=== PATIENT | male | born 1960 | race Caucasian/White ===

== ENCOUNTER 2018-08-04 02:51 | Observation (INO) ==
[2018-08-04] MEDS ORDERED: fentaNYL citrate 100 MCG/2 ML VIAL IV STA (03:10)
[2018-08-04] MEDS ORDERED: LABETALOL HCL IV 5 MG/ML 20ML IV STA (03:10)
--- NOTE | 2018-08-04 03:14 | Emergency Department Note ---
ED Provider Note Name: Tr Willingham Age: 57 M Arrives Via: POV Informant: Pt, CC: Abdominal pain HPI: 57 male arrives for evaluation of midline abdominal pain. Mild radiation to back. Tearing in nature. No radiation to flanks. No nausea, vomiting, syncope, cp, sob, fevers, chills, urinary/bowel changes, leg pains nor other symptoms. Nothing makes better nor worse. No medications taken for this. History of AAA with multiple areas repaired in 2015. He had recent CTA of abdomen revealing another aneurysm. He denies falls, trauma, injuries. ROS: See above HPI for pertinent positives & negatives. A total of 10 systems reviewed and were otherwise negative. Past Medical History: CAD, HTN, DLP, AAA Past Surgical History: CABG, AAA repair Family History: AAA, CAD Social History: Lives with , previous smoker Home Medications: Asa, Nexium, atorvastatin, gabapentin, advil, lisinopril, metoprolol, mtvi Allergies none Physical: Vitals: BP 126/74, P 74, R 18, T 36.5, O2 93 % Exam: GENERAL: Patient is very uncomfortable appearing and in moderate distress. EYES: No scleral icterus, unremarkable pupils. ENT: Mucous membranes moist, no nasal congestion. NECK: No masses appreciated, no meningismus, trachea is midline. RESPIRATORY: No dyspnea. Clear to auscultation and equal bilaterally. No wheeze, no rhonchi. CARDIOVASCULAR: Regular rate and rhythm. No murmurs, rubs, gallops appreciated. GASTROINTESTINAL: Vague TTP umbilical, mild TTP RLQ, otherwise abdomen soft, non-tender, no peritonitis. Bowel sounds positive. No masses appreciated. BACK: No midline tenderness, no CVA tenderness EXTREMITIES: Normal motion all extremities, no cyanosis, no edema. NEUROLOGIC: Alert and oriented, no acute motor or sensory deficits, no focal weakness, cranial nerves grossly intact. SKIN: No rash, no jaundice, no diaphoresis. ED Course: Prior Medical Record, Triage/Nursing Notes, Medications, Allergies reviewed by Me Vital Signs: reviewed and remarkable for HTN Labs: Reviewed and remarkable for normal cbc, bmp, lft, lipase Interventions: saline Lock, fentanyl 100mcg IV, Labetalol 10mg IV, NSS infusion Imaging: [facility] Radiologist interpretation reviewed by me: No evidence AAA issue however there is appendicitis findings Consults: Dr Cruz Gen Surg will take to OR Reassessments/Times: Multiple, BP much improved and pain resolving Blood pressure: Normal. No Referral necessary Disposition: Transferred to OR Differentials: AAA rupture/dissection, occlusion, ischemia, renal colic, uri, gb issue, appendicitis, diverticulitis, gastroeneritis amongst other pathologies. Medical Decision Makin yr old male with history of AAA repair and CABG who developed sudden onset rapidly worsening umbilical pain this evening. Quite hypertensive and unc omfortable on arrival. I will note he did have some RLQ TTP though no significant pain at that location otherwise on arrival. With history and findings sent emergently to CT for Angio abdomen/pelvis which revealed stable aorta but acute appendicitis. No fevers, wbc elevation and does not have sig nificant TTP at this time. Reviewed with gen surg who will bring patient to OR. Mefoxin given here without issue. Impression: Acute Appendicitis Hypertension Damion Dasilva MD Impression & Plan Appendicitis, acute, Hypertension Past Med/Surg History Medical History Appendicitis, acute (Acute) Appendicitis, acute Social History Preferred Language: Kazakh Feels Safe at Home: Yes Smoking Status: Former smoker Results & Data Vital Signs Vital Signs - 24 hr 08/04/18 02:56 08/04/18 03:39 08/04/18 04:30 Temperature 36.5 C Temperature Source Oral Sepsis Recent Fever Within 48 Hours No Sepsis New/Unexplained Change in Mental Status No Sepsis Action Taken by Nursing No Action Required Pulse Rate 79 Pulse Rate [Left Finger] 76 74 Pulse Rhythm Regular Pulse Strength Normal Respiratory Rate 20 18 18 Respiratory Effort / Characteristics Non-Labored Spontaneous Non-Labored Spontaneous Respiratory Depth Normal Normal Respiratory Pattern Regular Blood Pressure 198/114 H Blood Pressure [Right Arm] 129/78 126/74 Blood Pressure Mean 142 Blood Pressure Mean [Right Arm] 95 91 Blood Pressure Position Sitting Blood Pressure Position [Right Arm] Sitting Pulse Oximetry 97 95 93 Oxygen Delivery Method Room Air Room Air Room Air Laboratory Data Result diagrams: 08/04/18 03:12 08/04/18 03:12 Lab Results 08/04/18 08/04/18 Range/Units 03:12 03:12 WBC 10.68 (4.8-10.8) K/uL RBC 4.92 (4.7-6.1) M/uL Hgb 14.6 (14.0-18.0) g/dL Hct 43.3 (42-52) % MCV 88.0 (80-100) fL MCH 29.7 (25-34) pg MCHC 33.7 (32-36) g/dL RDW Std Deviation 39.9 (36.4-46.3) fL RDW Coeff of Naresh 12.4 (11.5-14.5) % Plt Count 165 (130-400) K/uL MPV 9.9 (7.4-10.4) fL Immature Gran % (Auto) 0.3 % Neut % (Auto) 68.5 % Lymph % (Auto) 17.3 % [place] % (Auto) 11.3 % Eos % (Auto) 2.4 % Baso % (Auto) 0.2 % Immature Gran # (Auto) 0.03 H (0.00-0.02) K/uL Neut # (Auto) 7.31 H (1.4-6.5) K/uL Lymph # (Auto) 1.85 (1.2-3.4) K/uL [place] # (Auto) 1.21 H (0.11-0.59) K/uL Eos # (Auto) 0.26 (0-0.5) K/uL Baso # (Auto) 0.02 (0-0.2) K/uL Sodium 138 (136-145) mmol/L Potassium 4.2 (3.5-5.1) mmol/L Chloride 104 (98-107) mmol/L Carbon Dioxide 26 (21-32) mmol/L Anion Gap 8.0 (3-11) BUN 18 (7-18) mg/dl Creatinine 1.35 (0.6-1.4) mg/dl Est Cr Clr Drug Dosing 67.3 ml/min Est GFR ( Amer) 66.1 Est GFR (Non-Af Amer) 57.1 BUN/Creatinine Ratio 13.3 (10-20) Glucose 110 H (70-99) mg/dl Calcium 9.2 (8.5-10.1) mg/dl Magnesium 1.9 (1.8-2.4) mg/dl Total Bilirubin 0.4 (0.2-1) mg/dl Direct Bilirubin < 0.1 (0-0.2) mg/dl AST 28 (15-37) U/L ALT 50 (12-78) U/L Alkaline Phosphatase 97 (45-117) U/L Total Protein 7.5 (6.4-8.2) gm/dl Albumin 3.7 (3.4-5.0) gm/dl Lipase 71 L (73-393) U/L Administered Medications Sodium Chloride (Nss 1000ml) 1,000 mls @ 100 mls/hr IV .Q10H SHARON Stop: 09/03/18 03:29 Last Admin: 08/04/18 04:03 Dose: 100 mls/hr Documented by: [id number] Ioversol (Optiray 320 125ml) 125 ml IV ONCE PRN PRN Reason: Interaction Checking Stop: 08/08/18 03:38 Last Admin: 08/04/18 03:40 Dose: 118 ml Documented by: [id number] Discontinued Medications Fentanyl Citrate (Fentanyl Citrate) 100 mcg IV NOW STA Stop: 08/04/18 03:11 Last Admin: 08/04/18 03:24 Dose: 100 mcg Documented by: [id number] Sodium Chloride (Nss 1000ml) 1,000 mls @ 100 mls/hr IV .Q10H SHARON Stop: 09/03/18 03:14 Last Admin: 08/04/18 05:21 Dose: Not Given Documented by: [id number] Cefoxitin Sodium (Mefoxin) 2,000 mg in 60 mls @ 100 mls/hr IV NOW STA Stop: 08/04/18 05:16 Last Admin: 08/04/18 05:21 Dose: 100 mls/hr Documented by: [id number] Labetalol HCl (Normodyne) 10 mg IV NOW STA Stop: 08/04/18 03:11 Last Admin: 08/04/18 03:24 Dose: 10 mg Documented by: [id number] Cosigned by: [id number] Discharge Plan Visit Data Chief Complaint: Abdominal Pain Stated Complaint: STOMACH PAIN ED Provider: Damion Dasilva Discharge Problem: Appendicitis, acute, Hypertension Forms Stand Alone Forms: Call Back Authorization, [facility] Prescriptions Prescriptions: No Action multivitamin Tablet 1 tab PO DAILY RF: 0 atorvastatin 40 mg Tablet 40 mg PO DAILY RF: 0 aspirin 325 mg Tablet 325 mg PO DAILY RF: 0 metoprolol succinate 200 mg Tablet Extended Release 24 Hr 200 mg PO DAILY RF: 0 acetaminophen [Tylenol Extra Strength] 500 mg Tablet 1,000 mg PO Q6H PRN (Reason: Pain) RF: 0 ibuprofen [Advil] 200 mg Tablet 400 mg PO Q6H PRN (Reason: Pain) RF: 0 gabapentin 300 mg Capsule 300 mg PO HS RF: 0 lisinopril 40 mg Tablet 40 mg PO DAILY RF: 0 esomeprazole magnesium [Nexium] 20 mg Capsule,Delayed Release(Dr/Ec) 20 mg PO DAILY RF: 0 Discharge Problem: Appendicitis, acute Qualifiers: Acute appendicitis type: with localized peritonitis Appendicitis gangrene presence: without gangrene Appendicitis perforation presence: without perforation Appendicitis abscess presence: without abscess Qualified Code(s): K35.30 - Acute appendicitis with localized peritonitis, without perforation or gangrene Hypertension Qualifiers: Hypertension type: essential hypertension Qualified Code(s): I10 - Essential (primary) hypertension
[2018-08-04] MEDS ORDERED: SODIUM CHLORIDE 0.9% 1000ML 1,000 ML IV SCH ×2 (03:15→03:30)
[2018-08-04 03:20] LABS: Basophils # (auto) 0.02 K/uL (0-0.2); Basophils % (auto) 0.2 %; Eosinophils # (auto) 0.26 K/uL (0-0.5); Eosinophils % (auto) 2.4 %; Hematocrit (blood only) 43.3 % (42-52); Hemoglobin 14.6 g/dL (14.0-18.0); Immature Granulocytes # (auto) 0.03 K/uL (0.00-0.02); Immature Granulocytes % (auto) 0.3 %; Lymphocytes # (auto) 1.85 K/uL (1.2-3.4); Lymphocytes % (auto) 17.3 %; Mean Corpuscular Hgb Conc 33.7 g/dL (32-36); Mean Platelet Volume 9.9 fL (7.4-10.4); Monocytes # (auto) 1.21 K/uL (0.11-0.59); Monocytes % (auto) 11.3 %; Neutrophils # (auto) 7.31 K/uL (1.4-6.5); Neutrophils % (auto) 68.5 %; Platelet Count 165 K/uL (130-400); RDW Coefficient of Variation 12.4 % (11.5-14.5); RDW Standard Deviation 39.9 fL (36.4-46.3); Red Blood Count 4.92 M/uL (4.7-6.1); White Blood Count 10.68 K/uL (4.8-10.8)
[2018-08-04 03:37] LABS: Alanine Aminotransferase 50 U/L (12-78); Albumin Level 3.7 gm/dl (3.4-5.0); Aspartate Aminotransferase 28 U/L (15-37); BUN Creatinine Ratio 13.3 (10-20); Bilirubin Direct < 0.1 mg/dl (0-0.2); Blood Urea Nitrogen 18 mg/dl (7-18); Calcium 9.2 mg/dl (8.5-10.1); Carbon Dioxide 26 mmol/L (21-32); Chloride 104 mmol/L (98-107); Creatinine Clr Calc Pharmacy 67.3 ml/min; Est GFR (African American) 66.1; Est GFR (Non-African American) 57.1; Glucose 110 mg/dl (70-99); Magnesium 1.9 mg/dl (1.8-2.4); Potassium 4.2 mmol/L (3.5-5.1); Sodium 138 mmol/L (136-145)
[2018-08-04] MEDS ORDERED: OPTIRAY 320 125ml IV PRN (03:39)
[2018-08-04 03:40] LABS: Alkaline Phosphatase 97 U/L (45-117); Bilirubin,Total 0.4 mg/dl (0.2-1); Total Protein 7.5 gm/dl (6.4-8.2)
[2018-08-04] MEDS ORDERED: cefOXitin 2,000 MG/60 ML BAG IV STA (04:41)
--- NOTE | 2018-08-04 05:40 | History & Physical Report ---
Date of Service August 04, 2018 Assessment & Plan (1) Appendicitis, acute: Our plan is to proceed with laparoscopic appendectomy possible open risk and complication were explained to the patient including bleeding infection high probability of converting to an open procedure due to the presence of a long midline incision and aortic surgery All questions were answered Present on Admission?: Yes History of Present Illness 57-year-old male admitted night developed some lower abdominal pain progressively became worse came to the emergency room her work-up revealed findings of acute appendicitis Denies any nausea or vomiting. Primary Care Provider: Maksim Vital MD Allergies Allergy/AdvReac Type Severity Reaction Status Date / Time No Known Allergies Allergy Unverified 08/04/18 02:56 Home Medications Home Medications Medication Instructions Recorded Confirmed Type acetaminophen [Tylenol Extra 1,000 mg PO Q6H PRN 08/04/18 08/04/18 History Strength] aspirin 325 mg PO DAILY 08/04/18 08/04/18 History atorvastatin 40 mg PO DAILY 08/04/18 08/04/18 History esomeprazole magnesium [Nexium] 20 mg PO DAILY 08/04/18 08/04/18 History gabapentin 300 mg PO HS 08/04/18 08/04/18 History ibuprofen [Advil] 400 mg PO Q6H PRN 08/04/18 08/04/18 History lisinopril 40 mg PO DAILY 08/04/18 08/04/18 History metoprolol succinate 200 mg PO DAILY 08/04/18 08/04/18 History multivitamin 1 tab PO DAILY 08/04/18 08/04/18 History Past Med/Surg History Medical History Appendicitis, acute Appendicitis, acute Social History Preferred Language: Lao Feels Safe at Home: Yes Smoking Status: Former smoker Immunizations: Patient past medical history significant for having had an open abdominal aortic aneurysm resection in [place] approximately 3 years ago and he follows regularly with them for peripheral vascular arterial insufficiency He has also had open heart surgery remote past The patient has a strong family history of atherosclerosis Review of Systems Review of Systems: Overall the patient is doing well with his present condition he does have a few issues that need to be addressed including claudicating symptoms in the right lower extremity not incapacitating Left hip presently being evaluated for therapy Denies any shortness of breath or chest pain any GI symptoms other than what stated Physical Exam Physical Exam: Patient is alert coherent in no distress significant other at bedside Head is normocephalic sclera nonicteric conjunctival injection Neck no stiffness no masses no carotid bruits patient did have a carotid Doppler years ago and I recommended possibly follow-up in the future Chest symmetrical in shape no wheezing sternotomy noted Abdomen slightly obese midline abdominal incision noted no hernias appreciated rebound tenderness in the right lower quadrant Extremities +1 right femoral pulse no pulses dorsalis pedis or posterior tibial on the right Left patient has a +2 femoral pulse and a +2 dorsalis pedis pulse +1 posterior tibial Results & Data Vital Signs (Past 12 Hours) Vital Signs Temp Pulse Pulse Resp BP BP Pulse Ox 08/04/18 04:30 74 18 126/74 93 08/04/18 03:39 76 18 129/78 95 08/04/18 02:56 36.5 C 79 20 198/114 H 97 Results noted CAT scan report was reviewed CAT scan was seen
--- NOTE | 2018-08-04 05:41 | History & Physical Report ---
Date of Service August 04, 2018 Assessment & Plan (1) Appendicitis, acute: Our plan is to proceed with laparoscopic appendectomy possible open risk and complication were explained to the patient including bleeding infection high probability of converting to an open procedure due to the presence of a long midline incision and aortic surgery All questions were answered History of Present Illness Primary Care Provider: Maksim Vital MD Allergies Allergy/AdvReac Type Severity Reaction Status Date / Time No Known Allergies Allergy Unverified 08/04/18 02:56 Home Medications Home Medications Medication Instructions Recorded Confirmed Type acetaminophen [Tylenol Extra 1,000 mg PO Q6H PRN 08/04/18 08/04/18 History Strength] aspirin 325 mg PO DAILY 08/04/18 08/04/18 History atorvastatin 40 mg PO DAILY 08/04/18 08/04/18 History esomeprazole magnesium [Nexium] 20 mg PO DAILY 08/04/18 08/04/18 History gabapentin 300 mg PO HS 08/04/18 08/04/18 History ibuprofen [Advil] 400 mg PO Q6H PRN 08/04/18 08/04/18 History lisinopril 40 mg PO DAILY 08/04/18 08/04/18 History metoprolol succinate 200 mg PO DAILY 08/04/18 08/04/18 History multivitamin 1 tab PO DAILY 08/04/18 08/04/18 History Past Med/Surg History Medical History Appendicitis, acute Appendicitis, acute Social History Preferred Language: Barbadian Feels Safe at Home: Yes Smoking Status: Former smoker Results & Data Vital Signs (Past 12 Hours) Vital Signs Temp Pulse Pulse Resp BP BP Pulse Ox 08/04/18 04:30 74 18 126/74 93 08/04/18 03:39 76 18 129/78 95 08/04/18 02:56 36.5 C 79 20 198/114 H 97
[2018-08-04] MEDS ORDERED: LIDOCAINE/EPINEPHRINE 1% 20 ML VIAL ONE (06:06)
--- NOTE | 2018-08-04 06:10 | Anesthesiology Consultation ---
Date of Service August 04, 2018 Assessment & Plan (1) Encounter for pre-operative examination: Chart Review Chart Review: Acceptable Risk for Surgery and Patient NOT seen in Pre Admission Testing History Surgery Operation Date: 08/04/18 06:15 Proposed Procedures p Laparoscopic Appendectomy - Richard Cruz MD Height/Weight Height: 5 ft 7 in Weight: 102.6 kg Allergies Allergy/AdvReac Type Severity Reaction Status Date / Time No Known Allergies Allergy Unverified 08/04/18 02:56 Medications Home Medications Medication Instructions Recorded Confirmed Last Taken acetaminophen [Tylenol Extra 1,000 mg PO Q6H PRN 08/04/18 08/04/18 08/03/18 Strength] aspirin 325 mg PO DAILY 08/04/18 08/04/18 08/03/18 atorvastatin 40 mg PO DAILY 08/04/18 08/04/18 08/03/18 esomeprazole magnesium [Nexium] 20 mg PO DAILY 08/04/18 08/04/18 08/03/18 gabapentin 300 mg PO HS 08/04/18 08/04/18 08/03/18 ibuprofen [Advil] 400 mg PO Q6H PRN 08/04/18 08/04/18 08/03/18 lisinopril 40 mg PO DAILY 08/04/18 08/04/18 08/03/18 metoprolol succinate 200 mg PO DAILY 08/04/18 08/04/18 08/03/18 multivitamin 1 tab PO DAILY 08/04/18 08/04/18 08/03/18 Active Medications Generic Name Dose Route Start Last Admin Trade Name Freq PRN Reason Stop Dose Admin Sodium Chloride 1,000 mls @ 100 mls/hr 08/04/18 03:30 08/04/18 04:03 Nss 1000ml IV 09/03/18 03:29 100 mls/hr .Q10H SHARON Administration Ioversol 125 ml 08/04/18 03:39 08/04/18 03:40 Optiray 320 125ml IV 08/08/18 03:38 118 ml ONCE PRN Administration Interaction Checking NPO Date Last Intake of Fluids: 08/03/18 Time Last Intake of Fluids: 20:00 Date Last Intake of Solids: 08/03/18 Time Last Intake of Solids: 19:00 Past Medical History Medical History Appendicitis, acute (Acute) AAA (abdominal aortic aneurysm) Appendicitis, acute Coronary artery disease Dyslipidemia GERD (gastroesophageal reflux disease) Hypertension Past Surgical History Surgical History History of AAA (abdominal aortic aneurysm) repair History of coronary artery bypass graft Social History Smoking Status: Former smoker Physical Exam Vital Signs Last Vital Signs Temp 36.8 C 08/04/18 06:22 Pulse 72 08/04/18 06:22 Resp 18 08/04/18 06:22 BP 110/60 08/04/18 06:22 Pulse Ox 94 08/04/18 06:22 Testing Electrocardiogram Date: 08/04/18 Findings: + NSR @ (77) Chest X-Ray Date: 08/04/18 XR chest 1V portable CLINICAL HISTORY: Preoperative chest COMPARISON STUDY: No previous studies for comparison. FINDINGS: There are postsurgical changes of midline sternotomy. The heart is at the upper limits of normal in size. There is no failure. There is no lobar consolidation. There are no pleural effusions. There is a linear opacity within the left mid to lower lung zone, likely representing scar/atelectasis.[ IMPRESSION: Area of linear scar/atelectasis within the left mid to lower lung zone. No evidence of failure. No evidence of lobar consolidation. Electronically signed by: Nestor Marshall M.D. 08/04/2018 6:27 AM Other Testing Laboratory Tests 08/04/18 08/04/18 03:12 03:12 WBC 10.68 Hgb 14.6 Hct 43.3 Plt Count 165 Sodium 138 Potassium 4.2 Chloride 104 Carbon Dioxide 26 BUN 18 Creatinine 1.35 Glucose 110 H
[2018-08-04] MEDS ORDERED: MIDAZOLAM HCL 1 MG/ML 2ML VIAL ONE (06:20)
[2018-08-04] MEDS ORDERED: fentaNYL citrate 100 MCG/2 ML VIAL ONE ×2 (06:20→09:05)
[2018-08-04] MEDS ORDERED: PROPOFOL IV EMULSION 10 MG/ML 20 ML VIAL IV ONE (06:22)
[2018-08-04] MEDS ORDERED: LIDOCAINE HCL 2% 2 ML VIAL/AMP(20MG/ML) INFIL ONE (06:22)
[2018-08-04] MEDS ORDERED: SUCCINYLCHOLINE CHLORIDE 20 MG/ML 10 ML VIAL ONE (06:22)
--- NOTE | 2018-08-04 06:30 | XRay Report ---
XR chest 1V portable CLINICAL HISTORY: Preoperative chest COMPARISON STUDY: No previous studies for comparison. FINDINGS: There are postsurgical changes of midline sternotomy. The heart is at the upper limits of n ormal in size. There is no failure. There is no lobar consolidation. There are no pleural effusions. There is a linear opacity within the left mid to lower lung zone, likely representing scar/atelectasi s.[ IMPRESSION: Area of linear scar/atelectasis within the left mid to lower lung zone. No evidence of fa ilure. No evidence of lobar consolidation. Electronically signed by: Nestor Marshall M.D. 08/04/2018 6:27 AM
[2018-08-04 06:40] LABS: iSTAT Creatinine 1.3 mg/dl (0.6-1.3); iSTAT Ionized Calcium 1.14 mmol/l (1.12-1.32); iSTAT Potassium 4.3 mEq/L (3.3-5.0)
[2018-08-04] MEDS ORDERED: ROCURONIUM BROMIDE 10 MG/ML 5 ML VIAL ONE ×2 (06:51→07:15)
[2018-08-04] MEDS ORDERED: DEXAMETHASONE SOD INJ 4 MG/ML VIAL ONE (06:52)
[2018-08-04] MEDS ORDERED: ONDANSETRON INJ 2 MG/ML 2 ML VIAL ONE (06:52)
[2018-08-04] MEDS ORDERED: ePHEDrine sulfate 50 MG/ML AMP IV PRN (07:01)
[2018-08-04] MEDS ORDERED: MEPERIDINE HCL 25 MG/ML CARP IV PRN (07:01)
[2018-08-04] MEDS ORDERED: ATROPINE SULFATE 0.1 MG/ML 10ML SYR IV PRN (07:01)
[2018-08-04] MEDS ORDERED: LABETALOL HCL IV 5 MG/ML 20ML IV PRN (07:01)
[2018-08-04] MEDS ORDERED: PHENYLEPHRINE 100MCG/ML 5ML SYR IV PRN (07:01)
[2018-08-04] MEDS ORDERED: fentaNYL citrate 100 MCG/2 ML VIAL IV PRN (07:01)
[2018-08-04] MEDS ORDERED: ONDANSETRON INJ 2 MG/ML 2 ML VIAL IV PRN ×2 (07:01→08:52)
[2018-08-04] MEDS ORDERED: HYDROmorphone INJ 1 MG/ML SYRINGE IV PRN (07:01)
[2018-08-04] MEDS ORDERED: ePHEDrine sulfate 50 MG/ML SYR ONE (07:15)
--- NOTE | 2018-08-04 07:16 | CT Scan Report ---
CT angio abd pelvis wo/w con CT DOSE: 1937.11 mGy.cm CLINICAL HISTORY: Severe abdominal pain. History of abdominal aortic aneurysm. TECHNIQUE: Unenhanced images were obtained to the abdomen and pelvis. CT angiographic imaging was the n performed in a dynamic helical fashion during intravenous administration of 118 cc of Optiray 320. MIP IMAGING WAS PERFORMED. A dose lowering technique was utilized adhering to the principles of [place]. COMPARISON STUDY: None. FINDINGS: There are basilar atelectatic changes. There is hepatic steatosis. No hepatic masses are visualized. No gallbladder abnormalities are visualized. No splenic masses are visualized. No pancreatic masses are visualized. No adrenal masses are visualized. 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 No solid renal masses are vis ualized. No renal, ureteral, or bladder calculi are visualized. Renal calcifications are felt to be v ascular. There are no transition zones indicate bowel obstruction. The appendix is dilated and there is periap pendiceal stranding. The findings are indicative of acute appendicitis. There is no evidence of acute diverticulitis. There is no pathologic adenopathy. The patient is status post abdominal aortic aneurysm repair and bilateral iliofemoral bypass grafts. There is a 34 mm infrarenal abdominal aortic aneurysm. There is irregular atheromatous plaque within the abdominal aorta. There is severe disease within the [place] iliac vessels. There is no evidence of renal artery stenosis. There is no evidence of celiac or superior mesenteric artery stenosis. There are multiple fat-containing ventral hernias. 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 IMPRESSION: 1. CT findings indicative of acute appendicitis. 2. Other findings as described above. Electronically signed by: Nestor Marshall M.D. 08/04/2018 7:15 AM
[2018-08-04] MEDS ORDERED: GLYCOPYRROLATE 0.2 MG/ML VIAL ONE (07:29)
[2018-08-04] MEDS ORDERED: NEOSTIGMINE METHYLSULFATE 5 MG/5 ML SYR ONE (07:29)
--- NOTE | 2018-08-04 07:35 | Post Operative Brief Note ---
Immediate Post Op Note v1 Date of Surgery August 04, 2018 Pre & Post Diagnosis Operation Date: 08/04/18 06:15 Pre-Op Diagnosis: Appendicitis Post-Op Diagnosis: Appendicitis Procedure Operation Date: 08/04/18 06:15 Actual Procedures p Laparoscopic Appendectomy(Not Applicable) - Richard Cruz MD Surgeon Richard Cruz MD Penciller b adele potts Estimated Blood Loss 5 Findings Consistent with Post-Op Diagnosis
--- NOTE | 2018-08-04 07:47 | Operative Report ---
Post Operative Report Pre & Post Diagnosis Operation Date: 08/04/18 06:15 Pre-Op Diagnosis: Appendicitis Post-Op Diagnosis: Appendicitis Procedure Operation Date: 08/04/18 06:15 Actual Procedures p Laparoscopic Appendectomy(Not Applicable) - Richard Cruz MD The patient was brought into the operating theater having voided prior to entering the theater general endotracheal anesthesia supine position systemic antibiotics on board the abdomen was prepped Betadine solution properly draped timeout was had patient identified small incision was made supraumbilically to the right of midline incision approximately 1/4 inch long dissected subcutaneous tissue Vega clamps elevated the abdominal wall fascia small opening in the fascia was made 0 Vicryl suture stay suture under direct visualization we entered the peritoneal cavity followed by a 5 mm trocar point of entry inspected no injury identified although we did see that we were in some adhesive bands at this point we were able to go towards right upper quadrant the open area placed a 5 mm trocar in the right upper quadrant with preemptive analgesic 1% Xylocaine as well towards the right lower quadrant there is some fine adhesive bands almost to the lateral wall that we took down sharply we at this point were able to identify the cecum which we elevated the appendix was right at the edge of the pelvic brim adherent to the lateral attachments and direct visualization we then to place a 5 mm trocar between the symphysis pubis in the umbilical area to the right of midline incision directly visualizing it as it entered first with the local anesthetic needle and then 5 mm trocar we avoided any adhesions the camera was then placed in l this lower trocar and using the umbilical right upper quadrant ports we were able to elevate the cecum the appendix the base with was elevated rotated medially and using scissors we were able to identify free up abdominal wall lateral attachments from the cecum and the appendix we are sharp dissection to completely elevate the appendix which the tape was inflamed and the mesentery was obviously edematous created a window between the appendix and the cecum at this point we changed the 5 mm umbilical trocar to 11mm as we entered the abdomen we are met with some adhesive bands to the abdominal wall at this point I placed the camera up in the right upper quadrant port and visualized that these were just omental adhesions but we were away from any bowel. In fact I did not see any bowel attached to the abdominal wall at this point he used a haider load of FABIENNE we are able to divide the appendix off the cecum avoiding the terminal ileum then we elevated the appendix and using sharp dissection I created 2 windows in the mesentery and used clips to come across its and divided in its hemostasis was excellent the appendix was placed in Endopouch and taken to the umbilical port the port was then we inserted and we irrigated the right lower quadrant area hemostasis was excellent suture line was free of any oozing and individual trochars were taken out under direct visualization last the umbilical trocar fascial sister [id number] 0 Vicryl was used for the umbilical opening the abdomen is 4-0 Monocryl Steri-Strips applied procedure was tolerated well estimated blood loss 5 cc addendumB Negro WATTS was present throughout the procedure helped with exposure retraction camera work Surgeon Richard Cruz MD Cyber Incident Handler b negro watts Estimated Blood Loss 5 Findings Consistent with Post-Op Diagnosis Specimens appendix non ruptured Description of Procedure merda I attest to the content of the Intraoperative Record and any orders documented therein. Any exceptions are noted below.
[2018-08-04] MEDS ORDERED: ACETAMINOPHEN 325 MG TAB PO PRN (08:52)
[2018-08-04] MEDS ORDERED: OXYCODONE/ACETAMINOPHEN 5mg/325mg TAB PO PRN (08:52)
[2018-08-04] MEDS ORDERED: MoRPHine SULFATE 4 MG/ML 1 ML CARP\\VIAL IV PRN (08:52)
--- NOTE | 2018-08-04 09:33 | Anesthesiology Progress Note ---
Date of Service August 04, 2018 Anesthesia Post Procedure Vital Signs Vital Signs: Temp Pulse Pulse Pulse Resp BP BP 08/04/18 09:08 78 19 109/71 08/04/18 08:45 36.8 C 78 18 98/65 L 08/04/18 08:30 36.1 C L 77 17 103/62 08/04/18 08:20 83 17 103/64 08/04/18 08:10 79 15 113/78 08/04/18 08:00 81 15 140/79 08/04/18 07:53 36.1 C L 79 20 135/85 08/04/18 06:22 36.8 C 72 18 110/60 08/04/18 06:12 71 18 98/71 L 08/04/18 04:30 74 18 126/74 08/04/18 03:39 76 18 129/78 08/04/18 02:56 36.5 C 79 20 198/114 H Pulse Ox 08/04/18 09:08 94 08/04/18 08:45 96 08/04/18 08:30 96 08/04/18 08:20 94 08/04/18 08:10 94 08/04/18 08:00 97 08/04/18 07:53 97 08/04/18 06:22 94 08/04/18 06:12 93 08/04/18 04:30 93 08/04/18 03:39 95 08/04/18 02:56 97 Pain Intensity Right Lower Abdomen: Pain Intensity: 0 Transfer of Care Handoff Completed per policy Notes Mental Status: alert / awake / arousable Patient Amnestic to Procedure: Yes Nausea / Vomiting: adequately controlled Pain: adequately controlled Airway Patency, RR, SpO2: stable & adequate BP & HR: stable & adequate Hydration State: stable & adequate Anesthetic Complications: no major complications apparent
[2018-08-04] MEDS: ASPIRIN 325 MG ECTAB PO SCH (09:35)
[2018-08-04] MEDS: LISINOPRIL 40 MG TAB PO SCH (09:35)
[2018-08-04] MEDS ORDERED: PANTOprazole 40 MG TAB PO ONE (10:00)
[2018-08-04] MEDS: LACTATED RINGER'S 1,000 ML IV SCH ×2 (11:09→21:04)
[2018-08-04] MEDS: METOPROLOL SUCC 50MG EXT REL TAB PO SCH (11:59)
[2018-08-04] MEDS: OXYCODONE/ACETAMINOPHEN 5mg/325mg TAB PO PRN ×2 (18:51→22:54)
[2018-08-04] MEDS ORDERED: GABAPENTIN 300 MG CAP PO SCH (21:00)
[2018-08-05] MEDS: OXYCODONE/ACETAMINOPHEN 5mg/325mg TAB PO PRN ×2 (05:47→09:58)
[2018-08-05] MEDS: LACTATED RINGER'S 1,000 ML IV SCH (05:48)
--- NOTE | 2018-08-05 07:37 | Surgery Progress Note ---
Date of Service August 05, 2018 Assessment & Plan (1) Appendicitis, acute: POD lap appy ok for discharge Subjective tolerating diet, minimal pain Physical Exam Gastrointestinal (Abdomen): Inspection/Auscultation: + abdominal surgical incision (clean, dry); abdomen not distended Percussion/Palpation: abdomen soft Results & Data Vital Signs (Past 12 Hours) Vital Signs Temp Pulse Resp BP Pulse Ox 08/05/18 03:13 36.9 C 84 16 96/62 L 94 08/04/18 22:57 36.9 C 90 16 96/62 L 95 (1) Appendicitis, acute Acute appendicitis type: with localized peritonitis Appendicitis abscess presence: without abscess Appendicitis gangrene presence: without gangrene Appendicitis perforation presence: without perforation Qualified Code(s): K35.30 - Acute appendicitis with localized peritonitis, without perforation or gangrene
[2018-08-05 07:38] LABS: Basophils # (auto) 0.02 K/uL (0-0.2); Basophils % (auto) 0.2 %; Eosinophils # (auto) 0.01 K/uL (0-0.5); Eosinophils % (auto) 0.1 %; Hematocrit (blood only) 35.4 % (42-52); Immature Granulocytes # (auto) 0.03 K/uL (0.00-0.02); Immature Granulocytes % (auto) 0.3 %; Lymphocytes % (auto) 13.4 %; Mean Corpuscular Hgb Conc 33.9 g/dL (32-36); Mean Corpuscular Volume 88.1 fL (80-100); Mean Platelet Volume 9.8 fL (7.4-10.4); Monocytes # (auto) 1.38 K/uL (0.11-0.59); Monocytes % (auto) 12.3 %; Neutrophils # (auto) 8.25 K/uL (1.4-6.5); Neutrophils % (auto) 73.7 %; Platelet Count 142 K/uL (130-400); RDW Coefficient of Variation 12.7 % (11.5-14.5); RDW Standard Deviation 41.1 fL (36.4-46.3); Red Blood Count 4.02 M/uL (4.7-6.1); White Blood Count 11.19 K/uL (4.8-10.8)
[2018-08-05 08:11] LABS: BUN Creatinine Ratio 12.6 (10-20); Calcium 9.1 mg/dl (8.5-10.1); Est GFR (African American) 82.9; Est GFR (Non-African American) 71.5; Potassium 4.4 mmol/L (3.5-5.1)
[2018-08-05] MEDS: METOPROLOL SUCC 50MG EXT REL TAB PO SCH (09:01)
[2018-08-05] MEDS: LISINOPRIL 40 MG TAB PO SCH (09:01)
[2018-08-05] MEDS: ASPIRIN 325 MG ECTAB PO SCH (09:01)
--- NOTE | 2018-08-07 00:59 | Discharge Summary ---
PRIMARY DISCHARGE DIAGNOSIS: Acute appendicitis. SECONDARY DISCHARGE DIAGNOSES: 1. Hypertension. 2. Gastroesophageal reflux disease. 3. Dyslipidemia. 4. History of abdominal aortic aneurysm repair. 5. Coronary artery disease. PROCEDURE PERFORMED: Laparoscopic appendectomy. HOSPITAL COURSE: The patient is a 57-year-old male who presented to the Emergency Department overnight complaining of lower mid abdominal pain. His white count was 10,000. CT was consistent with acute appendicitis. He was taken to the operating room early in the morning for laparoscopic appendectomy. Procedure was well tolerated. He was transferred to the surgical floor and kept for overnight observation. The following day, he was tolerating diet and oral analgesics. His incisions were clean and dry. His blood pressure remained stable. He was stable for discharge. DISCHARGE INSTRUCTIONS: Discharge home. Follow up with Dr. Cruz in approximately 2 weeks. DISCHARGE MEDICATIONS: Percocet 1-2 tablets every 4 hours as needed. Hold additional Tylenol while he is taking the Percocet. Resume other home medications aspirin 325 mg daily, atorvastatin 40 mg daily, Nexium 20 mg daily, gabapentin 300 mg at bedtime, ibuprofen 400 mg as needed, lisinopril 40 mg daily, metoprolol succinate 200 mg daily, daily multivitamin.
== END 2018-08-05 11:08 | disposition home or self-care (01) ==
LOC: ED 02:51 → OR 06:16 → 3W 06:16